=== PATIENT | male | born 1980 | race Caucasian/White ===

== ENCOUNTER 2020-09-22 13:50 | Emergency (ER) | payer OTHER ==
[~2020-09-22] VITALS: Ht 167.6 cm; Wt 77.7 kg
--- NOTE | 2020-09-22 14:21 | NUR ---
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
[2020-09-22] MEDS ORDERED: OXYcodone/APAP 10/325MG TABLET PO ONE (15:00)
--- NOTE | 2020-09-22 15:02 | NUR ---
PT TO XR
[2020-09-22] MEDS ORDERED: ONDANSETRON ODT 4 MG ONE (15:22)
[2020-09-22] MEDS ORDERED: OXYcodone/APAP 10/325MG TABLET ONE (15:23)
--- NOTE | 2020-09-22 15:27 | NUR ---
PAIN MEDICATION DELAYED D/T PT WANTING ANTI NAUSEA MEDICATION FIRST. PT SLEEPING UPON ENTERING ROOM FOR MEDICATION.
[2020-09-22] MEDS ORDERED: ONDANSETRON ODT 4 MG PO ONE (15:30)
--- NOTE | 2020-09-22 15:47 | NUR ---
PT CALMLY LAYING ON GURNEY, COMFORT MEASURES PROVIDED. MEDICATED PER EMAR. CALL LIGHT WITHIN REACH. NO NEEDS AT THIS TIME.
--- NOTE | 2020-09-22 16:37 | NUR ---
Destinee caceres in [facility] - 09/22/20 at 1735 by [email or web address]
--- NOTE | 2020-09-22 17:30 | NUR ---
PT BACK FROM CT
[2020-09-22 18:26] VITALS: BP 131/100
--- NOTE | 2020-09-22 18:26 | NUR ---
PT SLEEPING ON GURNEY W/ NO COMPLAINTS OF PAIN, AFFECTED LEG ELEVATED. NAD/VSS. COMFORT MEASURES PROVIDED. CALL LIGHT WITHIN REACH.
--- NOTE | 2020-09-22 18:56 | NUR ---
REPORT GIVEN TO MELIA
--- NOTE | 2020-09-22 18:57 | NUR ---
ASSUMED CARE OF PT, PT RESTING IN [place] AT THIS TIME.
== END 2020-09-22 19:08 | disposition home or self-care (01) ==
LOC: ED 16:57
DX: S92.121A Displaced fracture of body of right talus, initial encounter for closed fracture (principal); F17.210 Nicotine dependence, cigarettes, uncomplicated; W11.XXXA Fall on and from ladder, initial encounter; Y93.89 Activity, other specified; Y92.69 Other specified industrial and construction area as the place of occurrence of the external cause; Y99.0 Civilian activity done for income or pay
CPT/HCPCS: 29515; 73590; 73610; 73630; 73700; 99284; Q0162